=== PATIENT | female | born 1995 | race Caucasian/White ===

== ENCOUNTER 2017-02-19 18:23 | Emergency (ER) | payer BC ==
[~2017-02-19] VITALS: Ht 157.5 cm; Wt 72.2 kg
[2017-02-19 18:26] VITALS: Ht 157.5 cm; Wt 72.2 kg
[2017-02-19] MEDS ORDERED: LIDOCAINE/EPINEPHRINE 1% 20 ML VIAL ONE (18:32)
[2017-02-19] MEDS ORDERED: BCPILLS PO (18:53)
[2017-02-19] MEDS ORDERED: CEPH500C PO (18:57)
--- NOTE | 2017-02-19 18:58 | EMERGENCY ROOM VISIT NOTE ---
ED Visit Note First contact with patient: 18:29 Chief Complaint: "Left leg laceration" History of Present Illness: This patient is a 22-year-old female who presents to the Emergency Department via private vehicle for evaluation of their left lower lateral leg laceration. Patient sustained the laceration while walking/ putting her shoes on and accidentally struck the metal outcropping of a bed frame. They report a minimal amount of bleeding initially. They deny any numbness or tingling into the distal extremity. Patient rates her current discomfort as minimal. Patient's Tetanus status is believed to be currently up- to-date. Medications: As noted below Allergies: None PMH: No pertinent SHx: Patient lives locally and is a [employer] student. ROS: All pertinent positive and negative review of systems are appropriately documented in the History of Present Illness. Physical Exam: VITAL SIGNS - Vital signs and nursing notes were reviewed. Stable. GENERAL -22-year-old female appearing her stated age who is in no acute distress. Communicates well with provider and answers questions appropriately. SKIN - There is a 2.5 cm long laceration noted on the lateral aspect of the left inferior sherwood. The edges gape apart with traction. No foreign bodies appreciated. Upon further examination there are no deep structures including vessel, tendon, or bony structures appreciated. There is no active bleeding noted. MUSCULOSKELETAL -full range of motion noted of this region. NEUROLOGIC - Spinothalamic tract was found to be intact with ability to discriminate sharp versus dull sensation. No sensory defects of the dorsal column were appreciated utilizing light touch for evaluation. No evidence of Achilles tendon involvement. VASCULAR - Capillary refill was brisk. ED Course: Patient was seen and evaluated by myself. Risks and benefits of performing primary wound closure versus no repair were discussed with the patient who verbalizes understanding. Verbal consent was obtained prior to performing the procedure. 3 cc of 1% buffered lidocaine with epinephrine was used to anesthetize the 2.5 cm laceration. The wound was cleansed and prepped in the typical sterile fashion utilizing normal saline and Betadine. The wound was sterilely draped. Once proper anesthetization was established, the wound was further examined and demonstrated no deep involvement. The wound was copiously irrigated with normal saline and Betadine. The wound was closed using 5 simple, 5-0 nylon sutures with the wound edges being well approximated. Patient tolerated the procedure well. No complications were met. The wound was cleansed and dressed with a Bacitracin dressing. She'll be given Keflex for prophylaxis against infection over concern of the puncture nature to the wound. Patient educated on worrisome symptoms for return visit to the Emergency Department. Patient discharged to home in good condition. She denied chance of . Current/Historical Medications Scheduled Control Pills ( Control Pills), 1 TAB PO DAILY Cephalexin Monohydrate (Keflex), 500 MG PO TID Allergies Coded Allergies: No Known Allergies (Unverified , 02/19/17) Vital Signs Date Time Temp Pulse Resp B/P (MAP) Pulse Ox O2 Delivery O2 Flow Rate FiO2 02/19/17 19:12 36.8 74 18 120/72 100 02/19/17 18:26 36.8 71 18 152/86 98 Room Air Departure Information Impression Primary Impression: Laceration Dispostion Home / Self-Care Condition GOOD Prescriptions Cephalexin Monohydrate (Keflex) 500 Mg Cap 500 MG PO TID for 7 Days, #21 CAP Prov: Lui Aguilar PA-C 02/19/17 Referrals No Doctor, Assigned (PCP) Patient Instructions My [facility] Additional Instructions Discharge Instructions: You have received 5 sutures on your leg. These sutures are NOT dissolvable and WILL need to be removed by a health care provider in 12 days. You can return to the Emergency Department or contact your Primary Care Provider to have the sutures removed. Keflex 500mg every 8 hours to help prevent infection Proper wound care is essential for adequate wound healing and infection prevention. You can shower and clean the wound with soap and water. Do not scour over the wound, pat dry with a towel. Do not submerse the wound (i.e. bathe or dish wash) until the sutures have been removed. You can use an antibiotic ointment with a dressing over the wound for the next 3-4 days. After this time you may leave the wound dry and open to the air. If crust develops over the wound you can use a Q-tip to apply a 1:1 peroxide:water solution to clean the wound. Look for signs of infection of the wound including: increased pain, swelling, foul discharge, streaking, or increased temperature. If any of these are noticed you should return to the Emergency Department for further assessment and treatment. As with any laceration you may have received nerve damage to the surrounding tissues. This damage may or may not be permanent. You should keep the area covered with sunscreen for the first 6 months to 1 year when at risk for exposure to help minimize scarring. You can also use scar reducing creams or Vitamin E oil to help minimize scarring. For pain control, you can use the following [id number] medicines: - Regular strength (325mg/tab) Tylenol (acetaminophen) 2 tabs every 4-6 hours as needed. Do not exceed 12 tablets in a 24 hour period. Avoid taking more than 3 grams (3000 mg) of Tylenol per day. This includes any other sources of acetaminophen you may take on a regular basis. - Regular strength (200 mg/tab) Advil (ibuprofen) 1-2 tabs every 4-6 hours as needed. Do not exceed a dose of 3200 mg per day. Return to the emergency department if your symptoms worsen despite treatment course outlined above.
[2017-02-19 19:12] VITALS: BP 120/72; PULSE 74; TEMP 36.8; O2SAT 100
== END 2017-02-19 19:13 | disposition home or self-care (01) ==
LOC: C.EDB 18:24 → C.EDD 19:13
DX: S81.812A Laceration without foreign body, left lower leg, initial encounter (principal); W22.8XXA Striking against or struck by other objects, initial encounter; Z79.3 Long term (current) use of hormonal contraceptives